=== PATIENT | female | born 1965 | race Caucasian/White ===

== ENCOUNTER 2017-10-23 18:29 | Emergency (ER) | payer SELFPAY | END 2017-10-23 21:42 | disposition home or self-care (01) | LOC: FTE 18:29 | DX: R51 Headache (principal); F17.210 Nicotine dependence, cigarettes, uncomplicated; Z76.0 Encounter for issue of repeat prescription | CPT/HCPCS: 99282 ==

== ENCOUNTER 2017-11-09 10:07 | Emergency (ER) | payer SELFPAY ==
[2017-11-09] MEDS: IBUPROFEN 800 MG TAB PO (11:28)
== END 2017-11-09 13:24 | disposition home or self-care (01) ==
LOC: FTE 10:07
DX: J06.9 Acute upper respiratory infection, unspecified (principal)
CPT/HCPCS: 71045; 87400; 99284-25

== ENCOUNTER 2017-12-13 12:47 | Emergency (ER) | payer SELFPAY ==
[2017-12-13] MEDS: KETOROLAC 30 MG INJ IM (14:48)
[2017-12-13] MEDS: ONDANSETRON (ODT) 4 MG TAB ODT (14:48)
== END 2017-12-13 15:40 | disposition home or self-care (01) ==
LOC: FTE 12:47
DX: G43.909 Migraine, unspecified, not intractable, without status migrainosus (principal); F17.210 Nicotine dependence, cigarettes, uncomplicated
CPT/HCPCS: 96372; 99284-25

== ENCOUNTER 2018-01-28 15:33 | Emergency (ER) | payer SELFPAY ==
[2018-01-28] MEDS: KETOROLAC 15 MG INJ IM (16:06)
== END 2018-01-28 16:12 | disposition home or self-care (01) ==
LOC: FTE 15:33
DX: G43.901 Migraine, unspecified, not intractable, with status migrainosus (principal); F17.210 Nicotine dependence, cigarettes, uncomplicated
CPT/HCPCS: 96372; 99284-25

== ENCOUNTER 2018-03-07 12:10 | Emergency (ER) | payer SELFPAY ==
[2018-03-07] MEDS ORDERED: ONDANSETRON (ODT) 4 MG TAB ODT (14:25)
[2018-03-07] MEDS: HYDROCODONE/APAP (5/325) TAB PO (14:30)
[2018-03-07] MEDS: IBUPROFEN 200 MG TAB PO (14:30)
[2018-03-07] MEDS: ONDANSETRON (ODT) 4 MG TAB ODT (14:30)
== END 2018-03-07 14:50 | disposition home or self-care (01) ==
LOC: FTE 14:50
DX: G43.909 Migraine, unspecified, not intractable, without status migrainosus (principal); Z87.891 Personal history of nicotine dependence
CPT/HCPCS: 99284

== ENCOUNTER 2018-04-25 19:22 | Emergency (ER) | payer MEDICAID ==
[2018-04-25] MEDS: KETOROLAC 30 MG INJ IM (20:32)
[2018-04-25 21:03] LABS: URINE BLOOD (Dip) POC Trace-intact (NEGATIVE); URINE GLUCOSE (Dip) POC Negative (NEGATIVE); URINE KETONES (Dip) POC Negative (NEGATIVE); URINE LEUKOCYTE EST (Dip) POC 1+ (NEGATIVE); URINE NITRITE (Dip) POC Negative (NEGATIVE); URINE TOTAL PROTEIN POC Negative (NEGATIVE)
[2018-04-25] MEDS ORDERED: IBUPROFEN 600 MG TAB PO (22:30)
== END 2018-04-25 22:21 | disposition home or self-care (01) ==
LOC: FTE 19:22
DX: M54.42 Lumbago with sciatica, left side (principal); N39.0 Urinary tract infection, site not specified; Z87.891 Personal history of nicotine dependence
CPT/HCPCS: 81003; 81025; 96372; 99284-25

== ENCOUNTER 2018-07-13 14:00 | Emergency (ER) | payer MEDICAID ==
[2018-07-13] MEDS: ONDANSETRON (ODT) 4 MG TAB ODT (15:55)
[2018-07-13] MEDS: KETOROLAC 30 MG INJ IM (15:57)
[2018-07-13 16:00] LABS: URINE BLOOD (Dip) POC Negative (NEGATIVE); URINE GLUCOSE (Dip) POC Negative (NEGATIVE); URINE KETONES (Dip) POC Negative (NEGATIVE); URINE LEUKOCYTE EST (Dip) POC 1+ (NEGATIVE); URINE NITRITE (Dip) POC Negative (NEGATIVE); URINE TOTAL PROTEIN POC Negative (NEGATIVE)
[2018-07-13 16:00] LABS: URINE PH (Dip) POC 5.5 (5.0-8.5)
== END 2018-07-13 16:33 | disposition home or self-care (01) ==
LOC: FTE 14:00
DX: G43.909 Migraine, unspecified, not intractable, without status migrainosus (principal); F17.210 Nicotine dependence, cigarettes, uncomplicated; R11.0 Nausea
CPT/HCPCS: 81003; 81025; 96372; 99284-25

== ENCOUNTER 2018-08-27 21:29 | Emergency (ER) | payer OTHER, MEDICAID ==
[2018-08-27] MEDS: KETOROLAC 30 MG INJ IM (22:57)
[2018-08-27] MEDS: PROCHLORPERAZINE 10 MG INJ IM (23:02)
== END 2018-08-28 00:36 | disposition home or self-care (01) ==
LOC: FTE 08-28 00:36
DX: G43.909 Migraine, unspecified, not intractable, without status migrainosus (principal); J06.9 Acute upper respiratory infection, unspecified; R40.2412 Glasgow coma scale score 13-15, at arrival to emergency department; I10 Essential (primary) hypertension; F17.210 Nicotine dependence, cigarettes, uncomplicated
CPT/HCPCS: 96372; 99284-25

== ENCOUNTER 2018-09-28 18:46 | Emergency (ER) | payer OTHER ==
[2018-09-28] MEDS: METOCLOPRAMIDE 10 MG INJ IV (20:53)
[2018-09-28] MEDS: DIPHENHYDRAMINE 50 MG INJ IV (20:53)
[2018-09-28] MEDS ORDERED: morphine 4 MG/ML VIAL IV (20:59)
[2018-09-28] MEDS: SOD CHLORIDE 0.9% 1,000 ML IV (20:59)
[2018-09-28 21:00] LABS: ADD MAN DIFF? NO; BASOPHILS % 0.3 % (0.0-2.0); EOSINOPHILS # 0.1 10^3/ul (0.0-0.5); EOSINOPHILS % 1.3 % (0.0-7.0); HEMATOCRIT 37.1 % (37.0-47.0); HEMOGLOBIN 12.3 g/dl (12.0-16.0); LYMPHOCYTES # 2.3 10^3/ul (0.8-2.9); LYMPHOCYTES % 33.3 % (15.0-51.0); MEAN CORPUSCULAR HEMOGLOBIN 26.7 pg (29.0-33.0); MEAN CORPUSCULAR HGB CONC 33.2 g/dl (32.0-37.0); MEAN CORPUSCULAR VOLUME 80.7 fl (82.0-101.0); MEAN PLATELET VOLUME 9.4 fl (7.4-10.4); MONOCYTE # 0.4 10^3/ul (0.3-0.9); MONOCYTES % 6.3 % (0.0-11.0); NEUTROPHIL # 4.1 10^3/ul (1.6-7.5); NEUTROPHILS % 58.5 % (39.0-77.0); PLATELET COUNT 421 10^3/UL (140-415); RED CELL DISTRIBUTION WIDTH 13.2 % (11.5-14.5)
[2018-09-28 21:00] LABS: WHITE BLOOD COUNT 6.9 10^3/ul (4.8-10.8)
[2018-09-28 21:02] LABS: ADD UMIC YES; UR ASCORBIC ACID NEGATIVE (NEGATIVE); UR BILIRUBIN (Dip) NEGATIVE (NEGATIVE); UR BLOOD (Dip) 1+ mg/dL (NEGATIVE); UR CLARITY CLEAR (CLEAR); UR COLOR YELLOW (YELLOW); UR GLUCOSE (Dip) NEGATIVE (NEGATIVE); UR KETONES (Dip) TRACE mg/dL (NEGATIVE); UR LEUKOCYTE ESTERASE (Dip) NEGATIVE Leu/ul (NEGATIVE); UR NITRITE (Dip) NEGATIVE (NEGATIVE); UR RBC 0 /HPF (0-5); UR SPECIFIC GRAVITY (Dip) 1.017 (1.003-1.030); UR TOTAL PROTEIN (Dip) NEGATIVE (NEGATIVE); UR UROBILINOGEN (Dip) NEGATIVE (NEGATIVE); UR WBC 1 /HPF (0-5)
[2018-09-28 21:30] LABS: ALANINE AMINOTRANSFERASE 59 IU/L (13-69); ALBUMIN 4.8 g/dl (3.3-4.9); ALBUMIN/GLOBULIN RATIO 1.71; ALKALINE PHOSPHATASE 201 IU/L (42-121); AMYLASE 105 U/L (11-123); ANION GAP 18 (5-13); ASPARTATE AMINO TRANSFERASE 37 IU/L (15-46); BILIRUBIN,INDIRECT 0.2 mg/dl (0-1.1); BILIRUBIN,TOTAL 0.2 mg/dl (0.2-1.3); BLOOD UREA NITROGEN 19 mg/dl (7-20); CALCIUM 9.9 mg/dl (8.4-10.2); CARBON DIOXIDE 21 mmol/L (21-31); CHLORIDE 106 mmol/L (97-110); CREATININE 0.62 mg/dl (0.44-1.00); Estimated GFR > 60 mL/min (>60); GLUCOSE 93 mg/dl (70-220); LIPASE 148 U/L (23-300); POTASSIUM 3.5 mmol/L (3.5-5.1); SODIUM 145 mmol/L (135-144); TOTAL PROTEIN 7.6 g/dl (6.1-8.1)
[2018-09-28] MEDS: ACETAMINOPHEN 500 MG TAB PO ×2 (21:30→21:33)
== END 2018-09-28 22:57 | disposition home or self-care (01) ==
LOC: FTE 18:46
DX: G43.909 Migraine, unspecified, not intractable, without status migrainosus (principal); I10 Essential (primary) hypertension; R10.9 Unspecified abdominal pain
CPT/HCPCS: 76775; 80053; 81001; 82150; 83690; 84703; 85025; 87086; 96361; 96374; 96375; 99285-25

== ENCOUNTER 2018-10-17 19:37 | Emergency (ER) | payer OTHER | END 2018-10-17 23:00 | disposition home or self-care (01) | LOC: FTE 19:37 | DX: G43.909 Migraine, unspecified, not intractable, without status migrainosus (principal); I10 Essential (primary) hypertension | CPT/HCPCS: 99283; Z7502 ==

== ENCOUNTER 2019-02-05 13:37 | Emergency (ER) | payer OTHER | END 2019-02-05 16:42 | disposition home or self-care (01) | LOC: FTE 13:37 | DX: R11.0 Nausea (principal); I10 Essential (primary) hypertension | CPT/HCPCS: 99283 ==

== ENCOUNTER 2019-04-05 14:03 | Emergency (ER) | payer OTHER ==
[2019-04-05] MEDS: ONDANSETRON (ODT) 4 MG TAB ODT (15:56)
== END 2019-04-05 16:25 | disposition home or self-care (01) ==
LOC: FTE 14:03
DX: G43.109 Migraine with aura, not intractable, without status migrainosus (principal); Z76.0 Encounter for issue of repeat prescription
CPT/HCPCS: 99283; Z7502

== ENCOUNTER 2019-05-20 14:55 | Emergency (ER) | payer OTHER | END 2019-05-20 15:55 | disposition home or self-care (01) | LOC: FTE 14:55 | DX: G43.909 Migraine, unspecified, not intractable, without status migrainosus (principal); Z76.0 Encounter for issue of repeat prescription | CPT/HCPCS: 99282; Z7502 ==